=== PATIENT | female | born 1950 | race Caucasian/White ===

== ENCOUNTER → 2016-03-14 | Outpatient (CLI) | payer MEDICARE, MEDICAID ==
[~2016-03-14] MED LIST: ABILIFY10 MG PO; ADVAIR 100/501 E1 INH; ADVAIR 250/501 EA INH; ASPIRIN81 M1 PO; CALCIUM + D SO1 EACH PO; CIPROFLOXACIN500 M4 PO; CLARITIN10 MG PO; CYCLOBENZAPRINE10 MG PO; CYMBALTA30 MG PO; CYMBALTA60 MG PO; DEPAKOTE250 MG PO; DIVALPROEX SOD250 M1 PO; DUONEB 3 MG/3 ML3 M1 INH; ENALAPRIL20 MG PO; HYDR25T PO; HYDROCHLOROTHIA25 M1 PO; IBUPROFEN200 M2 PO; LEXAPRO20 MG PO; LOVASTATIN40 MG PO; METRONIDAZOLE500 M1 PO; OMEPRAZOLE DR20 M1 PO; PANTOPRAZOLE SO40 MG PO; PRAVACHOL40 MG PO; PRILOSEC40 M1 PO; SPIRIVA RESPIMAT4 GM INH; SPIRIVA18 MCG PO; VASOTEC20 MG PO; XYZAL5 MG PO
== END | disposition home or self-care (01) ==
LOC: RAD 03-13 16:02
DX: J18.9 Pneumonia, unspecified organism (principal); R06.02 Shortness of breath; J44.9 Chronic obstructive pulmonary disease, unspecified

== ENCOUNTER 2016-11-24 16:49 | Emergency (ER) | payer OTHER, MEDICAID ==
[~2016-11-24] VITALS: Wt 109.8 kg
[2016-11-24 17:26] LABS: BILIRUBIN NEGATIVE (NEGATIVE); BLOOD TRACE-LYSED (NEGATIVE); CLARITY CLEAR (CLEAR); COLOR YELLOW (YELLOW); GLUCOSE NEGATIVE (NEGATIVE); KETONE NEGATIVE (NEGATIVE); LEUKO ESTERASE NEGATIVE (NEGATIVE); NITRITE NEGATIVE (NEGATIVE); PH 7.5 (5.0-9.0); UROBILINOGEN 0.2 E.U./dl (0.2-1.0)
[2016-11-24 17:37] LABS: BACTERIA TRACE
[2016-11-24 17:56] LABS: HEMATOCRIT 44.8 % (37.0-47.0); HEMOGLOBIN 14.7 g/dl (12.0-16.0); MEAN CELL VOLUME 82.7 fl (81.0-99.0); MEAN CORPUSCULAR HGB 27.1 pg (27.0-31.0); MEAN CORPUSCULAR HGB CONC 32.8 g/dl (33.0-37.0); MEAN PLATELET VOLUME 10.7 fl (9.6-12.3); NUCLEATED RED BLOOD CELL 0.2 % (0.0-0.0); PLATELET COUNT AUTOMATED 179 10*3/uL (130-400); RED BLOOD COUNT 5.42 10*6/uL (4.10-5.10); RED CELL DISTRI WIDTH 14.6 % (0-14.5); WHITE BLOOD COUNT 12.8 10*3/uL (4.8-10.8)
[2016-11-24 18:16] LABS: ALBUMIN 4.2 gm/dl (3.1-4.5); ALKALINE PHOSPHATASE 69 U/L (45-117); BUN 10 mg/dl (7-24); CHLORIDE 108 mmol/L (98-107); CREATININE 0.87 mg/dL (0.55-1.02); LIPASE 85 U/L (73-393); POTASSIUM 4.6 mmol/L (3.5-5.1); SGOT/AST 24 IU/L (3-35); SGPT/ALT 18 U/L (12-78); SODIUM 142 mmol/L (136-145); TOTAL PROTEIN 7.4 gm/dL (6.4-8.2)
[2016-11-24 18:27] LABS: TOTAL CELLS COUNTED 100 #CELLS
[2016-11-24 18:29] LABS: PLATELET SUFFICIENCY NORMAL (NORMAL); POLYCHROMASIA SLIGHT
[2016-11-24] MEDS ORDERED: CIPRO500 MG PO (20:32)
[2016-11-24] MEDS ORDERED: FLAGYL500 MG PO (20:32)
== END 2016-11-24 22:14 | disposition home or self-care (01) ==
LOC: ED 16:49
PROVIDERS: Physician Assistant
DX: K57.92 Diverticulitis of intestine, part unspecified, without perforation or abscess without bleeding (principal); Z79.82 Long term (current) use of aspirin; Z79.899 Other long term (current) drug therapy

== ENCOUNTER → 2017-02-27 | Outpatient (CLI) | payer OTHER, MEDICAID ==
[~2017-02-27] MED LIST changes: +CIPRO500 MG PO; +FLAGYL500 MG PO
== END | disposition home or self-care (01) ==
LOC: MAMMO 07:06
DX: Z12.31 Encounter for screening mammogram for malignant neoplasm of breast (principal)

== ENCOUNTER → 2017-06-21 | Outpatient (CLI) | payer MEDICARE ==
[2017-06-21 15:59] LABS: CREATININE 0.91 mg/dL (0.55-1.02)
== END | disposition home or self-care (01) ==
LOC: LAB 15:20
PROVIDERS: Internal Medicine
DX: K57.90 Diverticulosis of intestine, part unspecified, without perforation or abscess without bleeding (principal)

== ENCOUNTER → 2017-06-26 | Outpatient (CLI) | payer MEDICARE | END | disposition home or self-care (01) | LOC: CT 01:03 → US 11:00 | DX: R10.84 Generalized abdominal pain (principal); R10.829 Rebound abdominal tenderness, unspecified site; K59.09 Other constipation; R30.0 Dysuria ==

== ENCOUNTER → 2017-07-05 | Outpatient (CLI) | payer MEDICARE | END | disposition home or self-care (01) | LOC: US 00:43 | DX: R30.0 Dysuria (principal); R10.829 Rebound abdominal tenderness, unspecified site ==

== ENCOUNTER → 2017-07-31 | Outpatient (CLI) | payer MEDICARE ==
[2017-07-31 14:26] LABS: HEMOGLOBIN 13.7 g/dl (12.0-16.0); MEAN CELL VOLUME 85.3 fl (81.0-99.0); MEAN CORPUSCULAR HGB 27.2 pg (27.0-31.0); MEAN CORPUSCULAR HGB CONC 31.9 g/dl (33.0-37.0); PLATELET COUNT AUTOMATED 167 10*3/uL (130-400); RED BLOOD COUNT 5.04 10*6/uL (4.10-5.10); RED CELL DISTRI WIDTH 14.5 % (0-14.5); WHITE BLOOD COUNT 16.2 10*3/uL (4.8-10.8)
[2017-07-31 14:47] LABS: ATYPICAL LYMPHS 1 % (0-0); PLATELET SUFFICIENCY NORMAL (NORMAL); TOTAL CELLS COUNTED 100 #CELLS
== END | disposition home or self-care (01) ==
LOC: LAB 13:57
PROVIDERS: Internal Medicine Gastroenterology
DX: K63.9 Disease of intestine, unspecified (principal)

== ENCOUNTER → 2017-08-07 | Day surgery (SDC) | payer MEDICARE ==
[~2017-08-07] VITALS: Ht 175.2 cm; Wt 104.3 kg
[~2017-08-07] MED LIST changes: +BREO ELLIPTA 11 EACH INH; +FISH OIL 1,0001 EAC4 PO; +LIPITOR20 MG PO; +OMEPRAZOLE40 MG PO; +OSTERA TABLET1 EACH PO; +SINGULAIR10 M1 PO
--- NOTE | ~2017-08-07 | O ---
[place], [place] OPERATIVE NOTE NAME: SASKIANILES YIPAE UNIT #: [id number] ROOM: DOCTOR: PATSY ALBA MD BIRTHDATE: [birth year] DOS: 08/07/2017 GASTROENDOSCOPIC REPORT INDICATIONS: A 67-year-old patient who has presented with history of diverticulitis, status post antibiotic therapy. FAMILY HISTORY: Uncle with colon carcinoma. ALLERGIES: To no known medication. PAST SURGICAL HISTORY: Hysterectomy, bilateral feet heel spurs. PAST MEDICAL HISTORY: COPD, hypercholesterolemia, hypertension, obesity, abnormal CT scan findings. PROCEDURE: Today's procedure part of investigation is colonoscopy plus biopsies plus piecemeal polypectomy plus tattoo markings. PREMEDICATIONS: Versed and propofol. SCOPE: [email or web address] colonoscope 10L video. REPORT: After putting the patient in left lateral position and application of lubricant to the scope, the scope was introduced; thereafter, under direct visualization, advanced through the length of colon with some difficulty, difficulty being fixation of sigmoid colon and severe diverticulosis of sigmoid colon. However, with extreme care, the scope was negotiated through the stricture and advanced to about hepatic flexure. Sessile polypoid lesion with piecemeal polypectomy removed and a hypertrophic fold about very proximal sigmoid colon close to splenic flexure was multiple times biopsied and tattoo marking of the area was done, ruling out early dysplasia of the fold. The patient was extubated, tolerated the procedure well. Beyond the hepatic flexure, residual stool was encountered and visualization was difficult. The patient was extubated, tolerated the procedure well. IMPRESSION: 1. Severe diverticulosis of sigmoid colon with benign strictures. 2. Hypertrophic fold at proximal sigmoid colon, status post tattoo marking, status post biopsies, ruling out in situ carcinoma. 3. Retained liquid stool, right colon. PLAN AND DISCUSSION: We are going to await biopsy results. We are going to organize a double contrast barium study as outpatient for visualization of base of cecum again and clinical reassessment. [place], [place] OPERATIVE NOTE NAME: SASKIAELZBIETA UNIT #: [id number] ROOM: DOCTOR: PATSY ALBA MD BIRTHDATE: [birth year] PATSY ALBA MD CM:ERLINDAORD:OPERATIVE NOTE [id number] PATSY ALBA MD 08/07/17 1208 interface
[2017-08-07 09:18] VITALS: BP 157/76
[2017-08-07 10:50] VITALS: BP 159/71
[2017-08-07 11:05] VITALS: BP 158/66
[2017-08-07 11:20] VITALS: BP 160/82
== END | disposition home or self-care (01) ==
LOC: SDC 08-02 11:00
DX: K57.30 Diverticulosis of large intestine without perforation or abscess without bleeding (principal); J44.9 Chronic obstructive pulmonary disease, unspecified; E78.00 Pure hypercholesterolemia, unspecified; Z80.0 Family history of malignant neoplasm of digestive organs; Z98.890 Other specified postprocedural states; I10 Essential (primary) hypertension; D12.5 Benign neoplasm of sigmoid colon; K63.5 Polyp of colon; Z79.899 Other long term (current) drug therapy; K21.9 Gastro-esophageal reflux disease without esophagitis; F32.9 Major depressive disorder, single episode, unspecified; Z90.710 Acquired absence of both cervix and uterus

== ENCOUNTER → 2017-09-16 | Outpatient (CLI) | payer MEDICARE | LOC: RAD 03:28 | DX: K57.30 Diverticulosis of large intestine without perforation or abscess without bleeding (principal); Z87.19 Personal history of other diseases of the digestive system ==

== ENCOUNTER → 2017-12-02 | Day surgery (SDC) | payer MEDICARE ==
[~2017-12-02] VITALS: Ht 175.3 cm; Wt 102.5 kg
[~2017-12-02] MED LIST changes: +BETAMETHASONE D15 GM T; +COLACE100 MG PO; +KENALOG 0.1% LO60 ML T; +NUPERCAINAL 1%30 GM PO; +TRAMADOL HCL50 MG PO
[2017-12-02 07:35] VITALS: BP 153/72
[2017-12-02 10:17] VITALS: BP 125/52
[2017-12-02 10:32] VITALS: BP 138/68
[2017-12-02 10:47] VITALS: BP 144/66
== END | disposition home or self-care (01) ==
LOC: SDC 11-29 08:00
DX: C85.90 Non-Hodgkin lymphoma, unspecified, unspecified site (principal); I10 Essential (primary) hypertension; E78.5 Hyperlipidemia, unspecified; K21.9 Gastro-esophageal reflux disease without esophagitis; J43.9 Emphysema, unspecified; E66.9 Obesity, unspecified; M19.90 Unspecified osteoarthritis, unspecified site; F32.9 Major depressive disorder, single episode, unspecified; Z87.891 Personal history of nicotine dependence; Z90.710 Acquired absence of both cervix and uterus; Z98.890 Other specified postprocedural states; Z68.33 Body mass index [BMI] 33.0-33.9, adult; Z79.899 Other long term (current) drug therapy

== ENCOUNTER → 2017-12-10 | Outpatient (CLI) | payer MEDICARE | END | disposition home or self-care (01) | LOC: RAD 13:29 | DX: R05 Cough (principal); R06.02 Shortness of breath; C85.90 Non-Hodgkin lymphoma, unspecified, unspecified site ==

== ENCOUNTER 2018-02-28 17:15 | Emergency (ER) | payer MEDICARE ==
[~2018-02-28] VITALS: Ht 175.2 cm; Wt 100.7 kg
[2018-02-28 17:51] LABS: HEMATOCRIT 35.3 % (37.0-47.0); HEMOGLOBIN 11.6 g/dl (12.0-16.0); MEAN CELL VOLUME 81.9 fl (81.0-99.0); MEAN CORPUSCULAR HGB 26.9 pg (27.0-31.0); MEAN CORPUSCULAR HGB CONC 32.9 g/dl (33.0-37.0); MEAN PLATELET VOLUME 9.8 fl (9.6-12.3); PLATELET COUNT AUTOMATED 164 10*3/uL (130-400); RED BLOOD COUNT 4.31 10*6/uL (4.10-5.10); RED CELL DISTRI WIDTH 14.1 % (0-14.5); WHITE BLOOD COUNT 3.5 10*3/uL (4.8-10.8)
[2018-02-28 17:51] LABS: BILIRUBIN NEGATIVE (NEGATIVE); BLOOD NEGATIVE (NEGATIVE); CLARITY CLEAR (CLEAR); COLOR YELLOW (YELLOW); GLUCOSE NEGATIVE (NEGATIVE); KETONE NEGATIVE (NEGATIVE); LEUKO ESTERASE TRACE (NEGATIVE); NITRITE NEGATIVE (NEGATIVE); PH 5.5 (5.0-9.0); UROBILINOGEN 0.2 E.U./dl (0.2-1.0)
[2018-02-28 18:02] LABS: BACTERIA TRACE
[2018-02-28 18:10] LABS: ALBUMIN 3.9 gm/dl (3.1-4.5); ALKALINE PHOSPHATASE 68 U/L (45-117); BUN 11 mg/dl (7-24); CHLORIDE 102 mmol/L (98-107); CREATININE 0.99 mg/dL (0.55-1.02); LIPASE 67 U/L (73-393); POTASSIUM 3.8 mmol/L (3.5-5.1); SGOT/AST 17 IU/L (3-35); SGPT/ALT 21 U/L (12-78); SODIUM 141 mmol/L (136-145); TOTAL PROTEIN 6.4 gm/dL (6.4-8.2)
[2018-02-28 18:24] LABS: PLATELET SUFFICIENCY NORMAL (NORMAL); TOTAL CELLS COUNTED 100 #CELLS
== END 2018-02-28 21:35 | disposition short-term general hospital (02) ==
LOC: ED 17:15
PROVIDERS: Physician Assistant
DX: R10.84 Generalized abdominal pain (principal); R19.7 Diarrhea, unspecified; R68.83 Chills (without fever); Z79.899 Other long term (current) drug therapy; Z79.82 Long term (current) use of aspirin; Z90.710 Acquired absence of both cervix and uterus; Z87.891 Personal history of nicotine dependence